=== PATIENT | male | born 1980 ===

== ENCOUNTER → 2017-12-05 | Emergency (ER) | payer OTHER ==
[~2017-12-05] VITALS: Ht 172.7 cm; Wt 75.7 kg
[~2017-12-05] MED LIST: IBUPROFEN800 MG PO; SEPTRA DS TABLE1 TAB PO
== END | disposition home or self-care (01) ==
LOC: ER 10:18
DX: S61.412A Laceration without foreign body of left hand, initial encounter (principal); W45.8XXA Other foreign body or object entering through skin, initial encounter; Y93.89 Activity, other specified; Y92.098 Other place in other non-institutional residence as the place of occurrence of the external cause; Y99.8 Other external cause status

== ENCOUNTER 2019-01-06 18:48 | Emergency (ER) | payer OTHER ==
[~2019-01-06] VITALS: Ht 172.7 cm; Wt 77.1 kg
== END 2019-01-06 22:10 | disposition home or self-care (01) ==
LOC: ER 18:48
DX: T78.49XA Other allergy, initial encounter (principal); R21 Rash and other nonspecific skin eruption